=== PATIENT | male | born 1995 | race Caucasian/White ===

== ENCOUNTER 2017-04-18 21:45 | Emergency (ER) | payer OTHER ==
[~2017-04-18] VITALS: Ht 177.8 cm; Wt 97.1 kg
[2017-04-18 22:01] VITALS: BP 141/104
--- NOTE | 2017-04-18 22:05 | NUR ---
pt to lobby awaiting room for MSE. VSS.
--- NOTE | 2017-04-19 01:58 | NUR ---
Patient to [facility]. RN evaluating patient.
--- NOTE | 2017-04-19 02:23 | NUR ---
PATIENT PRESENTS TO ED WITH HEAT BURN BY HOT METAL AT WORK TO RIGHT WRIST 1800 TODAY PT DENIES N/V/D; AAOX4 WITH EVEN AND STEADY GAIT; LUNGS CLEAR BL; HR EVEN AND REGULAR; PT DENIES ANY FEVER, CP, SOB, OR COUGH AT THIS TIME; PATIENT STATES PAIN OF 7/10 AT THIS TIME; VSS; PATIENT POSITIONED FOR COMFORT; HOB ELEVATED; BEDRAILS UP X2; BED DOWN. ER MD MADE AWARE OF PT STATUS.
[2017-04-19] MEDS ORDERED: NEOMYCIN/POLYMYXIN/BACITRACIN 0.9 GM/1 PKT TP ONE (02:55)
--- NOTE | 2017-04-19 03:35 | NUR ---
Patient discharged with v/s stable. Written and verbal after care instructions given and explained. Patient verbalized understanding. Ambulatory with steady gait. All questions addressed prior to discharge. Advised to follow up with PMD. DISCHARGED BY DR KNOX
== END 2017-04-19 03:36 | disposition home or self-care (01) ==
LOC: MED 21:45
DX: T22.211A Burn of second degree of right forearm, initial encounter (principal); X08.8XXA Exposure to other specified smoke, fire and flames, initial encounter; Y93.89 Activity, other specified; Y92.89 Other specified places as the place of occurrence of the external cause; Y99.8 Other external cause status
CPT/HCPCS: 16020; 90471; 90715; 99284